=== PATIENT | female | born 1995 | race Two or more races ===

== ENCOUNTER 2018-10-15 20:33 | Emergency (ER) | payer MEDICAID ==
[~2018-10-15] VITALS: Ht 162.6 cm; Wt 86.3 kg
--- NOTE | 2018-10-15 20:52 | NUR ---
PT UP TO RR WITH STEADY GAIT
--- NOTE | 2018-10-15 21:02 | NUR ---
PT PRESENTED WITH C/O FEVER CHILLS, NAUSEA AND BODY ACHES X 5 DAYS. DENIES VOMITING. PROVIDED PT WITH GOWN, MONITORS APPLIED, SIDERAILS UP X2, CALL LIGHT WITHIN REACH. PA AT BEDSIDE FOR EVAL
[2018-10-15] MEDS ORDERED: IBUPROFEN 600 MG TABLET ONE (21:13)
[2018-10-15] MEDS ORDERED: ACETAMINOPHEN 500 MG TABLET ONE (21:13)
[2018-10-15] MEDS ORDERED: ONDANSETRON ODT 4 MG ONE (21:14)
[2018-10-15 21:17] VITALS: BP 137/82
--- NOTE | 2018-10-15 21:17 | NUR ---
PT MEDICATED PER MAR
[2018-10-15] MEDS ORDERED: ONDANSETRON ODT 4 MG PO ONE (21:30)
[2018-10-15] MEDS ORDERED: ACETAMINOPHEN 500 MG TABLET PO ONE (21:30)
[2018-10-15] MEDS ORDERED: IBUPROFEN 200 MG TABLET PO ONE (21:30)
[2018-10-15 21:33] LABS: RAPID INFLUENZA A Negative (Negative); RAPID INFLUENZA B Negative (Negative)
--- NOTE | 2018-10-15 21:44 | NUR ---
PT TO XRAY
[2018-10-15 21:56] LABS: CULTURE INDICATED? YES; MICROSCOPIC INDICATED
[2018-10-15 22:19] LABS: HCG UR SG 1.025 (1.003-1.030)
== END 2018-10-15 22:45 | disposition home or self-care (01) ==
LOC: ED 22:11
DX: B34.9 Viral infection, unspecified (principal); Z77.22 Contact with and (suspected) exposure to environmental tobacco smoke (acute) (chronic)
CPT/HCPCS: 36415; 71046; 81001; 81025; 84702; 87081; 87086; 87400; 87880; 99284; Q0162